=== PATIENT | female | born 1970 | race Caucasian/White ===

== ENCOUNTER 2023-04-13 09:38 | Outpatient (AMB) | payer SELFPAY ==
--- NOTE | 2023-04-13 11:31 | AM.OFFWIN_ITS ---
Intake Vital Signs 04/13/23 11:32 Height 5 ft 2 in Weight 145 lb BMI 26.5 BP 120/70 Blood Pressure Location Lt brachial Position Sitting Pulse 78 Pulse Source Pulse Oximeter Temp 98 F Temp Source Oral Pulse Oximetry (%) 96 Intake Visit Reasons: [employer] HEL[employer]/ left foot pain (lobby) Intake Note: Patient is here with left top of foot, felt it trying to put a boot the night before last. 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 She reports that yesterday morning she was attempting to remove a tight boot, and felt a pop in the top of her foot. She subsequently had pain, particularly with walking. Has not had much swelling. Has had trouble being on her feet all day at work. [facility] Social History Patient Tobacco Use Status: Never used Tobacco Review of Systems Const All systems reviewed & are unremarkable except as noted in HPI and below Physical Exam Vital Signs: Last Vital Signs Temp 98 F 04/13/23 11:32 Pulse 78 04/13/23 11:32 BP 120/70 04/13/23 11:32 Pulse Ox 96 04/13/23 11:32 BMI result Body Mass Index 26.5 Const General: cooperative and no acute distress Resp Effort & Inspection: normal respiratory effort Skin General skin exam: no rashes or lesions noted Extrem Left lower extremity: foot (pain with dorsiflexion and with Weight-bearing) Details: normal capillary refill, normal to inspection, tenderness Location: of the dorsal foot Location: proximally, no edema and vascular exam Details: dorsalis pedis pulse present, posterior tibial pulse present and normal capillary refill Psych Appearance: grossly normal Mental Status: mental status grossly normal Speech and movement: Normal speech and movement present Assessment & Plan Assessment & Plan (1) Foot pain, left: Code(s): M79.672 - Pain in left foot Plan: Patient has pain on the top aspect of her foot following having a popping sensation when removing a boot yesterday. X-ray was obtained in the office today and does not reveal any acute fractures or subluxations. I recommended conservative treatment with patient, including rest, elevation, compression, and ice application. Also will prescribe a short course of meloxicam for anti- inflammatory purposes. I wrapped her foot/ankle today with an bryce bandage. Work note provided. If pain worsens or if she develops new symptoms, she should return to the clinic or follow-up with PCP for further evaluation. She verbalizes understanding and agrees to plan. Orders: Orders XR foot LT 2V Today M79.672 - Pain in left foot Medications: New meloxicam 15 mg PO DAILY 7 tabs 0RF 7 days M79.672 - Pain in left foot Coding Level of Care Code Est Pt Level 3 (36573) Diagnoses Foot pain, left M79.672
[2023-04-13 11:32] VITALS: BP 120/70; PULSE 78; TEMP 36.6; O2SAT 96; BMI 26.5
== END 2023-04-13 12:18 | disposition home or self-care (01) ==
PROVIDERS: Visit Provider Nurse Practitioner Family
DX: M79.672 Pain in left foot (principal)
CPT/HCPCS: 99213

== ENCOUNTER 2023-04-13 11:54 | Outpatient (REF) | payer SELFPAY ==
--- NOTE | ~2023-04-13 | XR_ITS ---
EXAMINATION: XR FOOT, LEFT CLINICAL INFORMATION: [place] pop when removing 2 with foot pain COMPARISON: None available. TECHNIQUE: AP, lateral, and oblique views of the left foot. FINDINGS: The bones and soft tissues are unremarkable. No fracture. Alignment is anatomic. Joint spaces are maintained. XR/XR foot LT 2V IMPRESSION: Normal left foot.
== END 2023-04-13 11:55 | disposition home or self-care (01) ==
LOC: HO.HMGCX 11:54
PROVIDERS: Visit Provider Nurse Practitioner Family
DX: M79.672 Pain in left foot (principal)
CPT/HCPCS: 73620